=== PATIENT | female | born 1955 | race Caucasian/White ===

== ENCOUNTER 2021-05-05 06:47 | Day surgery (SDC) | payer OTHER ==
[~2021-05-05] VITALS: Ht 167.6 cm; Wt 66.9 kg
[~2021-05-05 06:47] MED LIST: ALEN70; DICLOFENAC SOD100 GM; MELO7.5; Vitamin D1000 UNI1
[2021-05-05] MEDS ORDERED: Calicum 500+D1 EACH (07:14)
[2021-05-05] MEDS ORDERED: CENTRUM SILVER1 EAC2 (07:15)
--- NOTE | 2021-05-05 14:46 | NUR ---
05/05/21 1446 Zoila Alexandra 4 ML NACL INJECTED FOR POLYPECTOMY. 2 ML TATTOO USED AFTER POLYPECTOMY.
== END 2021-05-05 09:27 | disposition home or self-care (01) ==
LOC: ORSCSDS 06:47
PROVIDERS: Student in an Organized Health Care Education/Training Program
PROC: 0DBK8ZX Excision of Ascending Colon, Via Natural or Artificial Opening Endoscopic, Diagnostic (ICD-10-PCS; principal; 2021-05-05 08:00)
PROC: 0DBN8ZX Excision of Sigmoid Colon, Via Natural or Artificial Opening Endoscopic, Diagnostic (ICD-10-PCS; principal; 2021-05-05 08:00)
PROC: 0DBL8ZX Excision of Transverse Colon, Via Natural or Artificial Opening Endoscopic, Diagnostic (ICD-10-PCS; principal; 2021-05-05 08:00)
DX: Z12.11 Encounter for screening for malignant neoplasm of colon (principal); D12.2 Benign neoplasm of ascending colon; D12.3 Benign neoplasm of transverse colon; D12.5 Benign neoplasm of sigmoid colon; J44.9 Chronic obstructive pulmonary disease, unspecified; E78.5 Hyperlipidemia, unspecified; Z79.899 Other long term (current) drug therapy; Z87.891 Personal history of nicotine dependence
CPT/HCPCS: 88305; J2704; J7120

== ENCOUNTER 2022-10-19 06:47 | Day surgery (SDC) | payer OTHER ==
[~2022-10-19] VITALS: Ht 167.6 cm; Wt 66.7 kg
[~2022-10-19 06:47] MED LIST changes: +CENTRUM SILVER1 EAC2; +Calicum 500+D1 EACH
[2022-10-19 08:45] VITALS: BP 127/82
--- NOTE | 2022-10-19 08:46 | NUR ---
10/19/22 0846 Amanda Mitchell IV RIGHT HAND DC'D, CATH INTACT. PT TOLERATED WELL
== END 2022-10-19 08:44 | disposition home or self-care (01) ==
LOC: ORSCSDS 06:47
PROVIDERS: Student in an Organized Health Care Education/Training Program
PROC: 0DBM8ZX Excision of Descending Colon, Via Natural or Artificial Opening Endoscopic, Diagnostic (ICD-10-PCS; principal; 2022-10-19 08:00)
PROC: 0DBN8ZX Excision of Sigmoid Colon, Via Natural or Artificial Opening Endoscopic, Diagnostic (ICD-10-PCS; principal; 2022-10-19 08:00)
PROC: 0DBK8ZX Excision of Ascending Colon, Via Natural or Artificial Opening Endoscopic, Diagnostic (ICD-10-PCS; principal; 2022-10-19 08:00)
DX: Z12.11 Encounter for screening for malignant neoplasm of colon (principal); Z86.010 Personal history of colon polyps; J44.9 Chronic obstructive pulmonary disease, unspecified; E78.5 Hyperlipidemia, unspecified; Z79.899 Other long term (current) drug therapy
CPT/HCPCS: 88305; J2704; J7120